=== PATIENT | female | born 1930 | race Caucasian/White ===

== ENCOUNTER 2016-08-21 09:26 | Emergency (ER) | payer OTHER ==
[~2016-08-21] VITALS: Ht 162.5 cm; Wt 59.0 kg
--- NOTE | ~2016-08-21 | EKG ---
[place] [address] [place] [address] ELECTROCARDIOGRAM REPORT Name: LAURA MARQUEZ Room #: DEP [place]#: [id number] Admission: 08/21/16 Attend Phys: Discharge: 08/21/16 Date of : 28 Report #: [id number] THIS REPORT FOR: //name// [facility] ED Test Date: 2016-08-21 Test Time: 10:06:08 Pat Name: LAURA MARQUEZ Department: Room: Gender: F [employer]: MZOOK : 1930 Requested By: Ml Burk Order Number: [id number] MD: Philip Wise Measurements Intervals [place] Rate: 73 P: 67 TN: 290 QRS: 87 QRSD: 173 T: -51 QT: 496 QTc: 547 Interpretive Statements Sinus rhythm Prolonged TN interval Probable left atrial enlargement Right bundle branch block No previous ECG available for comparison Electronically Signed On 08-21-2016 14:19:03 CDT by Philip Wise [email or web address] <ELECTRONICALLY SIGNED> By: Philip Wise MD 08/21/16 1419 [id number] [id number] MD GREGORY Jameson
[~2016-08-21 09:26] MED LIST: CLEOCIN HCL150 MG PO; NORCO 5-325 TA1 EACH PO; TYLENOL PM EX-1 EACH PO
[2016-08-21 10:07] LABS: HEMATOCRIT 35.6 % (37.0-47.0); HEMOGLOBIN 12.2 gm/dL (12.0-15.0); MCH 35.7 pg (26.0-34.0); MCHC 34.1 g/dL (28.0-37.0); MCV 104.5 fL (80.0-100.0); PLATELET COUNT 188 thou/uL (150-400); RBC 3.41 mil/uL (4.20-5.00); RDW 14.6 % (10.5-14.5)
[2016-08-21 10:10] LABS: MANUAL DIFF YES
[2016-08-21 10:14] LABS: ANION GAP 10 mmol/L (7-16); BUN 23 mg/dL (7-18); CALCIUM 8.8 mg/dL (8.5-10.1); CHLORIDE 103 mmol/L (98-107); CO2 27 mmol/L (21-32); CREATININE 0.8 mg/dL (0.6-1.0); GLUCOSE 149 mg/dL (74-106); POTASSIUM 4.2 mmol/L (3.5-5.1); SODIUM 140 mmol/L (136-145)
[2016-08-21 10:22] LABS: ALBUMIN 3.5 g/dL (3.4-5.0); ALKALINE PHOSPHATASE 141 U/L (46-116); SGOT 36 U/L (15-37); SGPT 26 U/L (30-65); TOTAL BILIRUBIN 0.7 mg/dL (<0.1-1.0); TOTAL PROTEIN 7.4 g/dL (6.4-8.2); TROPONIN-I < 0.04 ng/mL (<0.04-0.07)
[2016-08-21 10:39] LABS: ABSOLUTE NEUTROPHILS 5.2 thou/uL (1.4-8.2); TOTAL CELL COUNT 100
[2016-08-21 10:40] LABS: ANISOCYTOSIS 1+
[2016-08-21 11:12] LABS: URINE BILIRUBIN NEGATIVE (Negative); URINE BLOOD TRACE (Negative); URINE COLOR YELLOW; URINE GLUCOSE-RANDOM* NEGATIVE (Negative); URINE KETONES NEGATIVE (Negative); URINE NITRITE NEGATIVE (Negative); URINE PROTEIN (DIPSTICK) NEGATIVE (Negative); URINE SPECIFIC GRAVITY 1.025 (1.003-1.035); URINE UROBILINOGEN 0.2 E.U./dl (0.2-1.0)
[2016-08-21] MEDS ORDERED: PHENERGAN 25 MG25 M1 PO (11:41)
[2016-08-21 12:13] VITALS: BP 156/54
== END 2016-08-21 12:15 | disposition home or self-care (01) ==
LOC: ER 09:26
PROVIDERS: Physician Assistant
DX: R11.2 Nausea with vomiting, unspecified (principal)